=== PATIENT | female | born 1945 | race Caucasian/White ===

== ENCOUNTER 2018-03-09 07:24 | Day surgery (SDC) | payer MEDICARE ==
[~2018-03-09] VITALS: Ht 162.6 cm; Wt 56.2 kg
[~2018-03-09 07:24] MED LIST: ASPI-496 PO; ATEN50TA41 PO; CHOL100011 PO; GLUC1CAP13 PO; LACT1CAP35 PO; LEVO25TA4 PO; OMEG1CAP34 PO; TRIA1TAB3 PO
[2018-03-09] MEDS ORDERED: LACTATED RINGERS 1,000 ML IV SCH (07:54)
[2018-03-09 08:03] VITALS: BP 202/95
[2018-03-09] MEDS ORDERED: EPINEPHRINE 1 MG/ML, 1ML ONE (10:13)
[2018-03-09] MEDS ORDERED: BUPIVACAINE/PF 0.5% ONE (10:13)
[2018-03-09] MEDS ORDERED: FENTANYL PF 100 MCG/2ML ONE ×2 (10:25→10:50)
[2018-03-09] MEDS ORDERED: SUCCINYLCHOLINE 20 MG/ML, 10ML ONE (10:26)
[2018-03-09] MEDS ORDERED: PROPOFOL 10 MG/ML, 20ML ONE (10:26)
[2018-03-09] MEDS ORDERED: DEXAMETHASONE 4 MG/ML, 1ML ONE (10:26)
[2018-03-09] MEDS ORDERED: ONDANSETRON 2MG/ML, 2ML ONE (10:26)
[2018-03-09] MEDS ORDERED: LIDOCAINE-MPF 2% ,5ML ONE (10:26)
[2018-03-09] MEDS ORDERED: ROCURONIUM 10MG/ML,5ML ONE (10:26)
[2018-03-09] MEDS ORDERED: NEOSTIGMINE 1 MG/ML, 10ML ONE (10:26)
[2018-03-09] MEDS ORDERED: GLYCOPYRROLATE 0.2MG/1ML, 5ML ONE (10:26)
[2018-03-09] MEDS ORDERED: CEFAZOLIN 1,000 MG ONE (10:26)
[2018-03-09] MEDS ORDERED: LIDOCAINE 4%, 4 ML SYR/CANN TP ONE (10:26)
[2018-03-09] MEDS ORDERED: BUPIVACAINE/PF-EPI 0.5% 1:200K IM ONE (10:51)
[2018-03-09] MEDS ORDERED: PROMETHAZINE 25 MG SUPP PR PRN (11:00)
[2018-03-09] MEDS ORDERED: OXYcodone 5 MG/5 ML ORAL.SOL UDC PO PRN (11:00)
[2018-03-09] MEDS ORDERED: MORPHINE SULFATE 4 MG/ML, 1ML IVPush PRN (11:00)
[2018-03-09] MEDS ORDERED: PROMETHAZINE 25 MG/ML, 1ML IV PRN (11:00)
[2018-03-09] MEDS ORDERED: ONDANSETRON ODT 8 MG PO PRN (11:00)
[2018-03-09] MEDS ORDERED: ACETAMINOPHEN 325 MG TABLET PO PRN (11:00)
[2018-03-09] MEDS ORDERED: FENTANYL PF 100 MCG/2ML IV PRN (11:00)
[2018-03-09] MEDS ORDERED: hydrALAzine 20 MG/ML, 1ML IV PRN (11:00)
[2018-03-09] MEDS ORDERED: ONDANSETRON 2MG/ML, 2ML IV PRN (11:00)
[2018-03-09] MEDS ORDERED: LABETALOL 5MG/ML, 20ML IV PRN (11:00)
[2018-03-09] MEDS ORDERED: OMNIPAQUE 180 MG/ML, 20ML VIAL ONE (11:27)
[2018-03-09] MEDS ORDERED: hydrALAzine 20 MG/ML, 1ML ONE (11:45)
[2018-03-09] MEDS ORDERED: LABETALOL 5MG/ML, 20ML ONE (12:19)
[2018-03-09] MEDS ORDERED: HYDROcodone/APAP 5/325 TABLET ONE (12:44)
[2018-03-09] MEDS ORDERED: HYDROcodone/APAP 5/325 TABLET PO ONE (13:00)
== END 2018-03-09 14:00 | disposition home or self-care (01) ==
LOC: OUT 07:24
PROVIDERS: ATTEND Orthopaedic Surgery Orthopaedic Surgery of the Spine
DX: M80.08XA Age-related osteoporosis with current pathological fracture, vertebra(e), initial encounter for fracture (principal); M47.26 Other spondylosis with radiculopathy, lumbar region; E03.9 Hypothyroidism, unspecified; I10 Essential (primary) hypertension; Z72.89 Other problems related to lifestyle
CPT/HCPCS: 22513; 22515; 72072; 88307; 88311; C1713; J0171; J0330; J0360; J0690; J1100; J2405; J2704; J2710; J3010; J3490; J7120; Q9965